=== PATIENT | male | born 1945 | race Caucasian/White ===

== ENCOUNTER → 2020-07-24 12:43 | Outpatient (CLI) | payer MEDICARE, SELFPAY ==
--- NOTE | ~2020-07-24 | CT_ITS ---
EXAMINATION: CT soft tissue neck w con EXAM DATE: 07/24/2020 13:09 INDICATION: Acute recurrent sialoadenitis. TECHNIQUE: Spiral CT of the neck was performed following intravenous injection of 75 mL Omnipaque 350 . Axial, coronal and sagittal images were reviewed. The dose-length product (DLP) for this examinat ion was 369.74 mGy-cm. The exposure was tailored according to patient size (auto mA exposure control ), and iterative reconstruction (ASIR) was used as additional dose reduction technique. Comparison is made to prior examination from 10/28/2019. FINDINGS: Again there is a calcification which could be large submandibular duct stone measuring abou t 10 mm in size, with some dilation of the left submandibular gland ducts identified. This gland is a ppear mildly enlarged, but there is less inflammation than on the prior study surrounding it. Parotid glands are unremarkable. The thyroid gland is unremarkable. There is no cervical lymphadenopathy. There are no masses bo ntified. The superior mediastinum is unremarkable. The airway is unremarkable. Parapharyngeal and pre-glottic fat planes are preserved. The opacified vasculature is patent. Mild bilateral carot id arterial sclerosis without stenosis. Patient has had bilateral ocular lens surgery. Visualized sinuses and mastoid air cells are well aerated. Mild apical emphysema. There is cervical spondylos is. IMPRESSION: Persistent calcification likely left submandibular gland/duct stone, with mild surroundin g inflammation. Sialolithiasis and likely results in sialoadenitis. Reviewed, dictated and finalized at location A. IMPRESSION: Persistent calcification likely left submandibular gland/duct stone , with mild surrounding inflammation. Sialolithiasis and likely results in sial oadenitis.
[2020-07-24 13:01] LABS: Estimated Glomerular Filt Rate 59
== END ==
PROVIDERS: PCP Internal Medicine; Visit Provider Otolaryngology
DX: K11.22 Acute recurrent sialoadenitis (principal)
CPT/HCPCS: 70491; Q9967

== ENCOUNTER 2020-09-11 12:49 | Outpatient (CLI) | payer MEDICARE, SELFPAY ==
--- NOTE | 2020-09-11 12:52 | ECG_ITS ---
Measurements Intervals Cord Rate: 61 P: 67 AL: 156 QRS: 8 QRSD: 106 T: 64 QT: 374 QTc: 380 Interpretive Statements SINUS RHYTHM ATRIAL PREMATURE COMPLEXES DELAYED PRECORDIAL R/S TRANSITION BASELINE ARTIFACT- I, II, AVR, AVL, AVF, V3 BORDERLINE ECG Electronically Signed On 09-11-2020 13:58:53 CDT by Vipul Ramirez D.O.
== END 2020-09-11 12:50 | disposition home or self-care (01) ==
LOC: ANHSURGERY 12:52
PROVIDERS: PCP Internal Medicine; Visit Provider Otolaryngology
DX: E78.5 Hyperlipidemia, unspecified (principal); Z01.818 Encounter for other preprocedural examination; R94.31 Abnormal electrocardiogram [ECG] [EKG]
CPT/HCPCS: 93005

== ENCOUNTER 2020-09-14 02:51 | Outpatient (CLI) | payer MEDICARE, SELFPAY ==
[2020-09-14 18:02] LABS: SARS-CoV-2 RNA PCR Negative
== END 2020-09-14 02:52 | disposition home or self-care (01) ==
LOC: ANHCOVIDDT 02:51
PROVIDERS: PCP Internal Medicine; Visit Provider Otolaryngology
DX: Z01.812 Encounter for preprocedural laboratory examination (principal); Z20.828 Contact with and (suspected) exposure to other viral communicable diseases
CPT/HCPCS: 87635; C9803; U0003

== ENCOUNTER 2020-09-17 01:22 | Day surgery (SDC) | payer MEDICARE, SELFPAY ==
[2020-09-07 14:40] VITALS: BMI 25.0
[2020-09-17] VITALS (7 sets, daily range): BP systolic 122–157; BP diastolic 62–88; PULSE 46–70; RESP 11–20; TEMP 36.2–36.4; O2SAT 100
[2020-09-17] MEDS: LACTATED RINGERS 1,000 ML 30 ML IV CONT ×2 (06:51→09:16)
--- NOTE | 2020-09-17 06:57 | P.PNAN_ITS ---
Anes - Initial Pre Proc Eval Procedure: Operation Date: 09/17/20 07:30 Proposed Procedures p Excision Left Submandibular Gland - Maynor Mclaughlin MD Date/Time: 09/17/20 06:57 Surgeon: Maynor Mclaughlin MD Pre Op Diagnosis: Sialolithiasis Patient Data Age: 75 Gender: M Height: 5 ft 10 in Weight: 79 kg Allergies Allergy/AdvReac Type Severity Reaction Status Date / Time No Known Allergies Allergy Verified 09/07/20 14:32 Home Medications Medication Instructions Recorded Confirmed Type aspirin [Aspir-81] 81 mg PO DAILY 09/07/20 09/07/20 History cholecalciferol (vitamin D3) 50 mcg PO DAILY 09/07/20 09/07/20 History [Vitamin D3] coenzyme Q10 [Co Q-10] 200 mg PO DAILY 09/07/20 09/07/20 History naproxen sodium [Aleve] 220 mg PO BID PRN 09/07/20 09/07/20 History pantoprazole 20 mg PO QPM 09/07/20 09/07/20 History pravastatin 80 mg PO QPM 09/07/20 09/07/20 History vit C,T-Hy-sptei-lutein-zeaxan 1 tablet PO BID 09/07/20 09/07/20 History [PreserVision AREDS-2] Patient hx anesthesia problems: none Family hx anesthesia problems: none PMFSH Past Medical History Medical History A-fib Arthritis Atrial flutter Cataracts, bilateral GERD (gastroesophageal reflux disease) History of cardioversion [place] (hard of hearing) Hyperlipidemia Macular degeneration lt Salivary stones Surgical History Surgical History H/O arthroscopy rt H/O inguinal hernia repair History of cardiac radiofrequency ablation Hx of cataract surgery Social History Social History Smoking packs per day: 1 Smoking cigarettes per day: 20.0 Years smoked: 60 Smoking pack-years: 60.00 Smoking status: Former smoker Smoking end date: 05/16/19 Alcohol intake: current Drinks per week: 1 Alcohol use details: 1 BEER/WK Living arrangements: with family Spiritual care concerns: No Anes - Eval Final PreProcedure Day of Procedure 09/17/20 06:57 Patient weight: normal Heart: regular rate and rhythm Lungs: decreased breath sounds Airway: Mallampati scale class II Neurological: alert and oriented Last oral intake: >/= 8 hours ASA classification: III Emergent: no Anesthetic plan: proceed Anesthesia type and monitoring: general ETT and standard monitoring Informed Consent: The patient's anesthetic plan and its attendant risks and benefits were discussed with the patient/family/POA. Questions were solicited and answers provided to the satisfaction of the patient/family/POA.
--- NOTE | 2020-09-17 07:18 | PM.IMHP ---
H&P: HPI History of Present Illness Date/Time: 09/17/20 07:18 Chief complaint: Sialolithiasis Narrative: Robbie Lopez is a 75 year old male left sialolithiasis Review of Systems Review of Systems: All systems reviewed & are unremarkable except as noted in HPI and below PMFSH Past Medical History Medical History A-fib Arthritis Atrial flutter Cataracts, bilateral GERD (gastroesophageal reflux disease) History of cardioversion [place] (hard of [place]) Hyperlipidemia Macular degeneration lt Salivary stones Surgical History Surgical History H/O arthroscopy rt H/O inguinal hernia repair History of cardiac radiofrequency ablation Hx of cataract surgery Social History Social History Smoking packs per day: 1 Smoking cigarettes per day: 20.0 Years smoked: 60 Smoking pack-years: 60.00 Smoking status: Former smoker Smoking end date: 05/16/19 Alcohol intake: current Drinks per week: 1 Alcohol use details: 1 BEER/WK Living arrangements: with family Spiritual care concerns: No Meds Home Medications and Allergies Home Medications Medication Instructions Recorded Confirmed Type aspirin [Aspir-81] 81 mg PO DAILY 09/07/20 09/07/20 History cholecalciferol (vitamin D3) 50 mcg PO DAILY 09/07/20 09/07/20 History [Vitamin D3] coenzyme Q10 [Co Q-10] 200 mg PO DAILY 09/07/20 09/07/20 History naproxen sodium [Aleve] 220 mg PO BID PRN 09/07/20 09/07/20 History pantoprazole 20 mg PO QPM 09/07/20 09/07/20 History pravastatin 80 mg PO QPM 09/07/20 09/07/20 History vit C,J-Rn-tpkra-lutein-zeaxan 1 tablet PO BID 09/07/20 09/07/20 History [PreserVision AREDS-2] Allergies Allergy/AdvReac Type Severity Reaction Status Date / Time No Known Allergies Allergy Verified 09/07/20 14:32 Exam Narrative: Exam Narrative: left proximal 1cm stone of submandibular gland. Rest of exam normal Assessment and Plan Assessment and plan (1) Sialolithiasis: Code(s): K11.5 - Sialolithiasis Status: Acute Assessment and Plan: Robbie is here for left submandibular gland excision for sialolithiasis. Refer to outpt H&P for full details
--- NOTE | 2020-09-17 07:19 | WPDHPUPDATE1 ---
History and Physical Update Update Date/Time: 09/17/20 07:19 History and Physical has been reviewed, including an updated exam of the patient. There are NO changes in the patient's condition. Risks, benefits, and alternatives have been discussed and questions answered. Patient agrees to proceed with procedure.
[2020-09-17] MEDS: LIDO 1%/EPINEPHRINE 1:100,000 20 ML VIAL 5 ML INFILTRATE (07:20)
[2020-09-17] MEDS: ceFAZolin 2 GM/D5W 50 ML 2 GM/50 ML BAG IVPB (07:30)
--- NOTE | 2020-09-17 09:13 | PM.PROC ---
Procedure Note - Detailed Date of procedure: 09/17/20 Pre-op diagnosis: Sialolithiasis Post-op diagnosis: same Procedure performed: Left submandibular gland excision Description of procedure: Details of the Surgery: Patient was identified in the preoperative holding area and all questions were answered. The left neck was marked and consent verified. They were brought back to the OR and placed under anesthesia via endotracheal intubation. The bed was rotated 180 degrees and a shoulder roll placed. Timeout was performed. The patient was prepped and draped in standard fashion for left neck surgery. The incision was marked in a natural crease and 4cc of 1% lidocaine with epinephrine was injected. Incision was made with a knife down to platysma. Electrocautery was used to transect the platysmal layer. Subplatysmal flaps were elevated superiorly and inferiorly. The superficial cervical fascia was carefully dissected and the marginal mandibular branch of the facial nerve was identified and dissected out. The facial vein and artery were identified and cut with harmonic scalpel. The fascial plane was elevated superiorly, protecting the marginal nerve. With the nerve protected, dissection proceeded superiorly along the edge of mandible, dissecting the submandibular gland free.. The anterior belly of the digastric was identified, skeletonized and the fascia along the muscle was taken with specimen. The posterior belly was then identified. The inferior aspect of the gland was dissected down to the posterior belly and the facial vessels were encountered and dissected with harmonic. The SCM was identified and the submandibular gland was seperated from the parotid and anterior border of the muscle. The lingual nerve and submandibular ganglion were identified. The descending fibers were clipped and cut and the nerve was preserved. [place]'s duct was dissected with harmonic scalpel and the large stone was noted in the proximal duct/gland and sent with the specimen, which was sent for permanent pathologic analysis. The wound bed was irrigated and hemostasis was obtained. Layered closure with vicryl, deep dermal and running subcuticular suture was performed. The skin was then closed with proline suture and a quarter inch jumana drain placed and secured to the skin. The patient was returned to anesthesia who woke them in the OR and transferred to PACU for recovery without complication. Anesthesia: GETA Surgeon: Maynor Mclaughlin MD Estimated blood loss (mL): 15 Drains: Yes Packing: No Pathology: yes (left submandibular gland) Complications: None Condition: stable Disposition: same day Findings: Large proximal stone in left submandibular gland
--- NOTE | 2020-09-17 09:42 | SUR.PHASEI ---
[id number]-DR. SALAMANCA AT [facility] AND SPOKE WITH PT AND WILL NOTIFY ,ABDIEL WITH UPDATE.
== END 2020-09-17 10:52 | disposition home or self-care (01) ==
PROVIDERS: PCP Internal Medicine; Visit Provider Otolaryngology
PROC: (CPT 42440; principal; 2020-09-17 07:30)
DX: K11.5 Sialolithiasis (principal); E78.5 Hyperlipidemia, unspecified; K21.9 Gastro-esophageal reflux disease without esophagitis; H35.30 Unspecified macular degeneration; Z87.891 Personal history of nicotine dependence
CPT/HCPCS: 42440; 87635; 88304; 93005; A9270; C9803; J0330; J0690; J1100; J2405; J2704; J3010; J7120; U0003